=== PATIENT | male | born 1980 | race Caucasian/White ===

== ENCOUNTER → 2016-08-16 | Day surgery (SDC) | payer OTHER | END | disposition home or self-care (01) | LOC: SDCH 14:07 | DX: D12.4 Benign neoplasm of descending colon (principal); D12.6 Benign neoplasm of colon, unspecified; K29.80 Duodenitis without bleeding; K57.30 Diverticulosis of large intestine without perforation or abscess without bleeding; K64.8 Other hemorrhoids; K44.9 Diaphragmatic hernia without obstruction or gangrene; I10 Essential (primary) hypertension; K21.9 Gastro-esophageal reflux disease without esophagitis; G43.909 Migraine, unspecified, not intractable, without status migrainosus; G89.29 Other chronic pain; F17.210 Nicotine dependence, cigarettes, uncomplicated; Z79.899 Other long term (current) drug therapy; Z88.0 Allergy status to penicillin | CPT/HCPCS: 87507; J2704 ==

== ENCOUNTER 2016-11-26 15:53 | Emergency (ER) | payer OTHER | END 2016-11-26 19:06 | disposition home or self-care (01) | LOC: ER 15:53 | DX: R10.9 Unspecified abdominal pain (principal); R19.7 Diarrhea, unspecified; R11.0 Nausea; K21.9 Gastro-esophageal reflux disease without esophagitis; F41.9 Anxiety disorder, unspecified; F32.9 Major depressive disorder, single episode, unspecified; Z87.442 Personal history of urinary calculi; Z79.899 Other long term (current) drug therapy; Z88.0 Allergy status to penicillin; Z87.891 Personal history of nicotine dependence | CPT/HCPCS: 36415; 96374; 96375 ==

== ENCOUNTER 2016-12-08 21:51 | Emergency (ER) | payer OTHER | END 2016-12-09 00:40 | disposition home or self-care (01) | LOC: ER 21:51 | DX: N17.9 Acute kidney failure, unspecified (principal); R09.1 Pleurisy; F41.9 Anxiety disorder, unspecified; F32.9 Major depressive disorder, single episode, unspecified; K21.9 Gastro-esophageal reflux disease without esophagitis; Z87.442 Personal history of urinary calculi; Z87.891 Personal history of nicotine dependence; Z79.899 Other long term (current) drug therapy; Z88.0 Allergy status to penicillin | CPT/HCPCS: 36415; 96374; 96375; J1885 ==